=== PATIENT | male | born 1970 ===

== ENCOUNTER 2023-08-14 05:25 | Day surgery (SDC) | payer BC ==
[2023-08-14] MEDS ORDERED: Dextrose 5%-0.45% NaCl 1,000 ML IV SCH (05:30)
[2023-08-14] MEDS ORDERED: fentaNYL 100 MCG/2 ML SDV ONE (06:05)
[2023-08-14] MEDS ORDERED: Midazolam 1 MG/ML 2 ML SDV ONE (06:05)
[2023-08-14] MEDS ORDERED: fentaNYL 100 MCG/2 ML SDV IV ONE ×2 (06:30→06:31)
[2023-08-14] MEDS ORDERED: Midazolam 1 MG/ML 2 ML SDV IV ONE ×6 (06:31→06:38)
== END 2023-08-14 08:10 | disposition home or self-care (01) ==
LOC: DL.ENDO 05:25
PROVIDERS: ATTEND Internal Medicine Gastroenterology
DX: Z12.11 Encounter for screening for malignant neoplasm of colon (principal); K57.30 Diverticulosis of large intestine without perforation or abscess without bleeding; I10 Essential (primary) hypertension; E78.5 Hyperlipidemia, unspecified; F17.210 Nicotine dependence, cigarettes, uncomplicated
CPT/HCPCS: J2250; J3010; J7042

== ENCOUNTER 2023-08-22 16:17 | Emergency (ER) | payer BC ==
[2023-08-22 17:43] LABS: BASOPHILS PERCENT AUTO 0.2 % (0.0-1.0); EOSINOPHILS PERCENT AUTO 0.2 % (1.0-3.0); HEMATOCRIT 42.7 % (40.0-54.0); HEMOGLOBIN 14.5 g/dL (14.0-18.0); LYMPHOCYTES PERCENT AUTO 12.5 % (20.5-50.1); MEAN CORPUSCULAR HEMOGLOBIN 31.1 pg (27.0-34.0); MEAN CORPUSCULAR VOLUME 91.6 fL (80-100); MONOCYTES PERCENT AUTO 6.1 % (2-8); PLATELET COUNT,PLT 244 10^3/uL (150-450); RED BLOOD CELL COUNT 4.66 10^6/uL (4.6-6.2); WHITE BLOOD CELL COUNT,WBC 14.7 10^3/uL (5.0-10.0)
[2023-08-22 18:00] LABS: ALANINE AMINOTRANSFERASE,ALT 38 U/L (16-63); ALBUMIN 3.6 g/dL (3.4-5.0); ALKALINE PHOSPHATASE 85 U/L (46-116); AMYLASE 81 U/L (25-115); ANION GAP 13.8 mEq/L (7-13); ASPARTATE AMNIOTRANSFERASE,AST 21 U/L (15-37); BILIRUBIN TOTAL 0.9 mg/dL (0.2-1.0); BLOOD UREA NITROGEN,BUN 10 mg/dL (7-18); BUN/CREATININE RATIO 8.6 (No establ ref range); C-REACTIVE PROTEIN 4.74 ng/dL (<=0.50); CALCIUM 8.3 mg/dL (8.5-10.1); CARBON DIOXIDE,CO2 30 mmol/L (21-32); CHLORIDE,CL 99 mmol/L (98-107); CREATININE 1.16 mg/dL (0.70-1.30); GLUCOSE RANDOM 138 mg/dL (70-99); LIPASE 181 U/L (16-77); POTASSIUM,K 3.8 mmol/L (3.5-5.1); PROTEIN TOTAL,TP 7.1 g/dL (6.4-8.2); SODIUM,NA 139 mmol/L (136-145)
[2023-08-22 18:03] LABS: LACTIC ACID 1.6 mmol/L (0.4-2.0)
[2023-08-22 18:04] LABS: ESTIMATED GFR 75 mL/min (>=60)
[2023-08-22] MEDS ORDERED: Ketorolac 30 MG/ML SDV IVPUSH ONE (18:19)
== END 2023-08-22 18:33 | disposition home or self-care (01) ==
LOC: DL.ED 16:17
DX: K85.20 Alcohol induced acute pancreatitis without necrosis or infection (principal); I10 Essential (primary) hypertension; R10.9 Unspecified abdominal pain; R59.0 Localized enlarged lymph nodes; K86.89 Other specified diseases of pancreas
CPT/HCPCS: 36415; 74177; 80053; 82150; 83605; 83690; 85025; 86140; 96374; 99283; 99284-25; J1885; Q9967

== ENCOUNTER 2024-03-03 17:47 | Emergency (ER) | payer BC ==
[2024-03-03] MEDS: Bacitracin Oint 1 GM U/D Packet TOP ONE (19:27)
[2024-03-03] MEDS: Lidocaine 1% 5 ML VIAL INJECT ONE (19:27)
[2024-03-03] MEDS: Diphtheria,Pertussis(Acell),Tetanus Vaccine 0.5 ML Syringe IM ONE (19:27)
== END 2024-03-03 21:01 | disposition home or self-care (01) ==
LOC: DL.ED 17:47
DX: S62.661A Nondisplaced fracture of distal phalanx of left index finger, initial encounter for closed fracture (principal); I10 Essential (primary) hypertension; Z23 Encounter for immunization; Z86.16 Personal history of COVID-19; Z87.891 Personal history of nicotine dependence; W31.2XXA Contact with powered woodworking and forming machines, initial encounter
CPT/HCPCS: 12001; 73140-F1; 90471; 90715; 99283-25; A9270-GY; J3490